=== PATIENT | male | born 1990 | race Caucasian/White ===

== ENCOUNTER 2017-03-01 09:20 | Inpatient (IN) | payer BC, MEDICAID ==
[~2017-03-01] VITALS: Ht 172.7 cm; Wt 67.2 kg
[2017-03-01 11:26] VITALS: BP 132/87
[2017-03-01] MEDS ORDERED: LOPERAMIDE HCL 2 MG CAPSULE PO PRN ×2 (11:45→12:15)
[2017-03-01] MEDS ORDERED: HALOPERIDOL 5 MG TABLET PO PRN (11:45)
[2017-03-01] MEDS ORDERED: ACETAMINOPHEN 325 MG TABLET PO PRN ×2 (11:45→12:15)
[2017-03-01] MEDS ORDERED: MAG HYDROX/AL HYDROX/SIMETH ES 30 ML SUSPENSION UDCUP PO PRN ×2 (11:45→12:15)
[2017-03-01] MEDS ORDERED: ZOLPIDEM TARTRATE 10 MG TABLET PO PRN (11:45)
[2017-03-01] MEDS ORDERED: MAGNESIUM HYDROXIDE SUSPENSION 30 ML UDCUP PO PRN ×2 (11:45→12:15)
[2017-03-01] MEDS ORDERED: PROMETHAZINE HCL 25 MG TABLET PO PRN ×2 (11:45→12:15)
[2017-03-01] MEDS ORDERED: TUBERCULIN, PURIFIED PROTEIN DERIVATIVE 5 TU/0.1 ML SYG ID ONE (12:15)
[2017-03-01] MEDS ORDERED: GuaiFENesin/D-METHORPHAN [SUGAR-FREE] 200-20MG/10 ML SYRUP UDCUP PO PRN (12:15)
[2017-03-01] MEDS ORDERED: OLANZapine 5 MG RAPDIS TABLET PO PRN (12:15)
[2017-03-01] MEDS ORDERED: HydrOXYzine PAMOATE 50 MG CAPSULE PO PRN (12:15)
[2017-03-01 12:31] VITALS: BP 126/99
[2017-03-01] MEDS: LORazepam 2 MG TABLET PO PRN (16:31)
[2017-03-01] MEDS: THIAMINE HCL 100 MG TABLET PO SCH (16:31)
[2017-03-01 17:51] VITALS: BP 132/80
[2017-03-01] MEDS ORDERED: OLANZapine 5 MG RAPDIS TABLET PO SCH (21:00)
[2017-03-02 00:01] VITALS: BP 109/66
[2017-03-02 08:21] VITALS: BP 127/72
[2017-03-02 08:23] LABS: BASOPHILS % (AUTO) 0.9 % (0.0-2.0); EOSINOPHILS % (AUTO) 1.1 % (1.0-6.0); HEMATOCRIT 44.3 % (41-53); HEMOGLOBIN 14.9 g/dL (13.5-17.5); LYMPHOCYTES % (AUTO) 49.1 % (22.0-44.0); MEAN CORPUSCULAR HEMOGLOBIN 28.7 pg (26.0-34.0); MEAN CORPUSCULAR HGB CONC 33.6 G/dL (31.0-37.0); MEAN CORPUSCULAR VOLUME 85 fL (80-100); MONOCYTES # (AUTO) 0.7 K/uL (0.1-1.0); MONOCYTES % (AUTO) 8.6 % (2.0-9.0); NEUTROPHILS # (AUTO) 3.3 K/uL (1.8-7.7); NEUTROPHILS % (AUTO) 40.3 % (40.0-70.0); PLATELET COUNT (AUTO) 262 K/uL (150-450); RED CELL DISTRIBUTION WIDTH 14.5 % (11.5-14.5); WHITE BLOOD COUNT (AUTO) 8.1 K/uL (4.5-11.0)
[2017-03-02 08:29] LABS: ALANINE AMINOTRANSFERASE 21 U/L (12-78); ALBUMIN 4.6 g/dL (3.4-5.0); ANION GAP 8 mmol/L (8-16); ASPARTATE AMINOTRANSFERASE 18 U/L (15-37); BILIRUBIN,TOTAL 0.9 mg/dL (0.1-1.0); CALCIUM, TOTAL 9.7 mg/dL (8.8-10.5); CARBON DIOXIDE 30 mmol/L (22-29); CHLORIDE 104 mmol/L (98-107); CHOL/HDL RATIO 2.6 (4.2-7.3); CREATININE 1.04 mg/dL (0.60-1.30); GLOMERULAR FILTR. RATE CALC > 60 mL/min (>60); POTASSIUM 3.5 mmol/L (3.5-5.1); SODIUM SERUM 142 mmol/L (136-145); THYROID STIMULATING HORMONE 1.29 uIU/mL (0.36-3.74); TOTAL PROTEIN, SERUM 6.8 g/dL (6.4-8.2); UREA NITROGEN, BLOOD 8 mg/dL (7-18)
[2017-03-02] MEDS: MULTIVITAMINS WITH MINERALS, THERAPEUTIC TABLET PO SCH (08:59)
[2017-03-02] MEDS: FOLIC ACID 1 MG TABLET PO SCH (09:00)
[2017-03-02] MEDS: THIAMINE HCL 100 MG TABLET PO SCH ×2 (09:00→16:35)
[2017-03-02] MEDS ORDERED: LAMO25 PO (14:57)
[2017-03-02 16:08] VITALS: BP 121/69
[2017-03-03 03:05] VITALS: BP 105/60
[2017-03-03] MEDS: LORazepam 2 MG TABLET PO PRN (04:28)
[2017-03-03 08:25] VITALS: BP 123/90
[2017-03-03] MEDS: MULTIVITAMINS WITH MINERALS, THERAPEUTIC TABLET PO SCH (08:56)
[2017-03-03] MEDS: THIAMINE HCL 100 MG TABLET PO SCH (08:56)
[2017-03-03] MEDS: FOLIC ACID 1 MG TABLET PO SCH (08:56)
[2017-03-03] MEDS ORDERED: LamoTRIgine 25 MG TABLET PO SCH ×2 (09:00)
== END 2017-03-03 13:00 | disposition home or self-care (01) | DRG 885 ==
LOC: B2X 11:25 → UNDOADMIN 11:56
PROVIDERS: ADMIT Psychiatry & Neurology Psychiatry; ATTEND Psychiatry & Neurology Psychiatry
DX: F29 Unspecified psychosis not due to a substance or known physiological condition (principal); R00.0 Tachycardia, unspecified; F41.0 Panic disorder [episodic paroxysmal anxiety]; F31.9 Bipolar disorder, unspecified; Z91.14 Patient's other noncompliance with medication regimen; Z88.0 Allergy status to penicillin
CPT/HCPCS: 84439; 84443